=== PATIENT | female | born 1950 | race Caucasian/White ===

== ENCOUNTER 2018-02-20 09:36 | Emergency (ER) | payer OTHER ==
[~2018-02-20] VITALS: Ht 165.1 cm; Wt 90.7 kg
[~2018-02-20 09:36] MED LIST: COZAAR 50 MG TA50 M2 PO; ESCITALOPRAM OX10 MG PO; LAMICTAL XR25 MG PO; NORCO 5-325 TA1 EACH PO; PAXIL20 MG PO; PRAVACHOL40 MG PO; PRISTIQ50 MG PO; PROTONIX PO; TROSPIUM CHLORI60 MG PO; XANAX 0.5 MG0.5 MG PO; XANAX XR2 MG PO
[2018-02-20 12:02] VITALS: BP 145/80
== END 2018-02-20 12:02 | disposition home or self-care (01) ==
LOC: M.ERS 09:36
DX: S01.81XA Laceration without foreign body of other part of head, initial encounter (principal); E78.00 Pure hypercholesterolemia, unspecified; F32.9 Major depressive disorder, single episode, unspecified; K21.9 Gastro-esophageal reflux disease without esophagitis; F41.9 Anxiety disorder, unspecified; Z88.8 Allergy status to other drugs, medicaments and biological substances; W18.2XXA Fall in (into) shower or empty bathtub, initial encounter; Y93.89 Activity, other specified; Y92.091 Bathroom in other non-institutional residence as the place of occurrence of the external cause; Y99.8 Other external cause status

== ENCOUNTER → 2018-10-24 | Outpatient (CLI) | payer OTHER | LOC: M.RAD 15:39 | DX: Z12.31 Encounter for screening mammogram for malignant neoplasm of breast (principal) ==

== ENCOUNTER → 2018-10-26 | Outpatient (CLI) | payer OTHER | LOC: M.ULTRA 14:00 | DX: N63.20 Unspecified lump in the left breast, unspecified quadrant (principal) ==